=== PATIENT | male | born 2000 | race Caucasian/White ===

== ENCOUNTER 2021-10-18 09:02 | Outpatient (CLI) | payer SELFPAY ==
--- NOTE | 2021-10-18 | ECG_ITS ---
Measurements Intervals [place] Rate: 62 P: 75 AL: 174 QRS: 0 QRSD: 122 T: 55 QT: 386 QTc: 395 Interpretive Statements SINUS RHYTHM WITH SINUS ARRHYTHMIA MODERATE INTRAVENTRICULAR CONDUCTION DELAY [110+ ms QRS DURATION] NO PREVIOUS ECG AVAILABLE FOR COMPARISON Electronically Signed On 10-18-2021 10:22:03 CDT by Marilyn Fox MD
== END 2021-10-18 09:03 | disposition home or self-care (01) ==
PROVIDERS: PCP Family Medicine; Visit Provider Family Medicine
DX: R00.2 Palpitations (principal); I49.9 Cardiac arrhythmia, unspecified; I45.9 Conduction disorder, unspecified
CPT/HCPCS: 93005

== ENCOUNTER 2023-12-05 10:18 | Outpatient (CLI) | payer OTHER, SELFPAY ==
--- NOTE | ~2023-12-05 | XR_ITS ---
EXAMINATION: XR UGIAC wo kub DATE: 12/05/2023 10:53 INDICATION: Gastroesophageal reflux disease without esophagitis TECHNIQUE: The patient drank thick barium, gas-producing crystals, and thin barium. A total of 516 fl uoroscopic images of the esophagus, stomach, and proximal small bowel were obtained. Fluoroscopy expo sure time was 1.4 minutes. Total DAP was 7.293 mGycm^2 COMPARISON: None. FINDINGS: The esophagus is normal without mass or stricture. Esophageal motility is normal. There is no hiatal hernia. There were 2 episodes of gastroesophageal reflux with provocative maneuvers. The st omach and proximal small bowel are normal. IMPRESSION: 1. Couple episodes of gastroesophageal reflux with provocative maneuvers. Otherwise normal upper GI s tudy with no hiatal hernia. Reviewed, dictated and finalized at location B. IMPRESSION: 1. Couple episodes of gastroesophageal reflux with provocative maneuvers. Other nelson normal upper GI study with no hiatal hernia.
== END 2023-12-05 10:19 | disposition home or self-care (01) ==
PROVIDERS: PCP Emergency Medicine; Visit Provider Emergency Medicine
DX: K21.9 Gastro-esophageal reflux disease without esophagitis (principal)
CPT/HCPCS: 74246

== ENCOUNTER 2023-12-13 10:17 | Outpatient (CLI) | payer OTHER, SELFPAY ==
--- NOTE | ~2023-12-13 | US_ITS ---
US abdomen complete EXAMINATION: US Abdomen Complete INDICATION: Abdomen pain PROCEDURE: Realtime High Resolution abdomen ultrasound. COMPARISON: No prior studies for comparison FINDINGS: Gallbladder within normal limits. No gallstones, pericholecystic fluid, gallbladder wall t hickening or biliary dilatation. Common bile duct measures 3 mm. Liver echotexture within normal limits without focal mass. Pancreas within normal limits. Pancreati c tail is obscured by bowel gas. Spleen is unremarkeable. Renal echotexture is within normal limits bilaterally without hydronephrosis, contour deforming mass or renal stone. Right kidney measures 10.1 cm. Left kidney measures 11.3 cm. Visualized aspects of the aorta and IVC are within normal limits. Portal vein is patent. No sonograph ic Lopez's sign indicated by the technologist. IMPRESSION: 1: Normal abdominal ultrasound. Reviewed, dictated and finalized at location B.
== END 2023-12-13 10:18 | disposition home or self-care (01) ==
LOC: MICIMG 10:18
PROVIDERS: PCP Emergency Medicine; Visit Provider Emergency Medicine
DX: K21.9 Gastro-esophageal reflux disease without esophagitis (principal)
CPT/HCPCS: 76700

== ENCOUNTER 2024-02-14 11:14 | Emergency (ER) | payer OTHER, SELFPAY ==
[2024-02-14 11:26] VITALS: BP 152/86; PULSE 70; RESP 16; TEMP 36.8; O2SAT 99
[2024-02-14 12:07] LABS: EDUAAPPEAR Clear; EDUABILI Negative (Negative); EDUABLOOD Negative (Negative); EDUACOLOR1 Yellow; EDUAGLUCOSE Negative (Negative); EDUAKETONE Negative (Negative); EDUALEUKO Negative (Negative); EDUANITRATE Negative (Negative); EDUAPH 6.5; EDUAPROTEIN Negative (Negative); EDUAUROBILI 0.2
--- NOTE | 2024-02-14 12:09 | ED.MALEGU ---
HPI - Male Genitourinary General Chief complaint: Urogenital-Male Stated complaint: urinary issue Time Seen by Provider: 02/14/24 12:13 Source: patient, RN notes reviewed and old records reviewed Mode of arrival: ambulatory Limitations: no limitations History of Present Illness HPI Narrative: Patient presents with complaints of burning with urination and pain following ejaculation. He reports that he has had a burning sensation with ejaculation since becoming sexually active, but the burning sensation with typically subside fairly quickly. He reports that since the last time he ejaculated he has continued to have the burning sensation, especially with urinating. He denies any injury or trauma. He denies fever, chills, sweats. He does report that he uses condoms and spermicide. He voices no other concerns or complaints Related Data Home Medications Medication Instructions Recorded Confirmed No Home Medications 05/23/23 05/23/23 Allergies Allergy/AdvReac Type Severity Reaction Status Date / Time keflex AdvReac unknown Uncoded 02/14/24 11:20 Review of Systems Review of Systems: All systems reviewed & are unremarkable except as noted in HPI and below Constitutional: Constitutional: Reports no additional constitutional complaints ENT: Reports system reviewed and no additional complaints, except as documented Cardiovascular: Cardiovascular: Reports no additional cardiovascular complaints Respiratory: Respiratory: Reports no additional respiratory complaints Gastrointestinal: Gastrointestinal: Reports no additional gastrointestinal complaints Genitourinary: Genitourinary: Reports no additional male genitourinary complaints and Reports as per HPI [facility] Family History Family History Mother Diabetes mellitus Grandparent Breast cancer Carcinoma of colon Social History Social History Social History: Patient states he vaped for four year's. Smoking status: Never smoker Tobacco type: e-cigarettes/vaping Smoking end date: 07/15/21 Comments At the time of my signature, I reviewed and agree with the nursing past medical, surgical, social, and family history. There is no relevant family history pertinent to the patient complaint. Exam Const: General: cooperative, no acute distress, alert and awake Orientation/consciousness: oriented to person, oriented to place and oriented to time HENMT: Head: normal to inspection Resp: Effort & Inspection: normal respiratory effort and able to speak in complete sentences Auscultation: clear to auscultation bilaterally, no crackles, no rales, no rhonchi and no wheezes Cardio: Palpation: normal PMI Rate: regular rate Rhythm: regular rhythm Heart sounds: S1 normal heart sound present and S2 normal heart sound present : Male General Exam: Yes normal external exam Neuro: General: oriented to person, oriented to place and oriented to time Cranial nerves: Yes CN's II-XII intact bilaterally Psych: Appearance: grossly normal Thought process: Normal thought process present Insight: Good insight present (Psych) Judgement: Good judgement present (Psych) Course Course Level of Care: Express Care Visit Vital Signs Vital signs: Vital Signs Temperature 98.2 F 02/14/24 11:26 Pulse Rate 70 02/14/24 11:26 Respiratory Rate 16 02/14/24 11:26 Blood Pressure 152/86 H 02/14/24 11:26 Pulse Oximetry 99 02/14/24 11:26 Oxygen Delivery Room Air 02/14/24 11:26 Temperature 98.2 F 02/14/24 11:26 Pulse Rate 70 02/14/24 11:26 Respiratory Rate 16 02/14/24 11:26 Blood Pressure 152/86 H 02/14/24 11:26 Pulse Oximetry 99 02/14/24 11:26 Oxygen Delivery Room Air 02/14/24 11:26 Reviewed MDM - Male Genitourinary MDM Narrative Medical decision making narrative: Negative UA. Reassuring physical exam. STD panel pending. Suggest that patient changed brands of condom, perhaps there is some degree of sensitivity. Elevated blood pressure noted. Patient strongly encouraged to follow with primary care provider Discharge instructions reviewed with patient, as well as provided in writing per nursing staff. The instructions also include specific and strict return/GO TO THE ER as well as f/u information. All questions have been answered, and the patient deny any further questions with discharge and discharge plan. Some parts of this dictation were generated by voice recognition software and may contain typographical and/or grammatical inaccuracies. Differential Diagnosis Differential diagnosis: Likely urinary tract infection, urethritis, epididymitis, prostatitis and other (sti) Medical Records Attestation: I reviewed the patient's medical records. Lab Data Attestation: I reviewed the patient's lab results. Labs: Lab Results 11/30/24 Range/Units 11:40 POC Urine Color Yellow POC Urine Clarity Clear POC Urine pH 6.5 POC Ur Specif [place] 1.020 POC Urine Protein Negative (Negative) POC Ur Glucose (UA) Negative (Negative) POC Urine Ketones Negative (Negative) POC Urine Blood Negative (Negative) POC Urine Nitrite Negative (Negative) POC Urine Bilirubin Negative (Negative) POC Urine Urobilinogen 0.2 POC U Leukocyte Esteras Negative (Negative) Discharge Plan Discharge Clinical Impression: Dysuria, Elevated blood pressure reading Patient Disposition: Home, Self-Care Condition: Stable Instructions: Antibiotic Form, Dysuria (ED) Additional Instructions: Drink plenty of water, at least 64 oz daily. Follow-up with primary care provider. Emergency department for new or worse symptoms Patient Language: Maltese Prescriptions: No Action No Home Medications Follow-up/Referrals: Raul Bland MD [Primary Care Provider] - 1 Week Time of Disposition: 12:24
[2024-02-14 18:41] LABS: Trichomonas Vag PCR NOT DETECTED (NOT DETECTE)
[2024-02-14 19:11] LABS: Chlamydia trachomatis NOT DETECTED (NOT DETECTE); Neisseria gonorrhoeae PCR NOT DETECTED (NOT DETECTE)
== END 2024-02-14 12:27 | disposition home or self-care (01) ==
PROVIDERS: Emergency Provider Nurse Practitioner Family; PCP Emergency Medicine
DX: R30.0 Dysuria (principal); R03.0 Elevated blood-pressure reading, without diagnosis of hypertension; Z11.3 Encounter for screening for infections with a predominantly sexual mode of transmission; Z87.891 Personal history of nicotine dependence
CPT/HCPCS: 81003; 87491; 87591; 87661; 99213; G0463

== ENCOUNTER 2025-02-21 00:47 | Day surgery (SDC) | payer OTHER, SELFPAY ==
[2025-01-27 14:59] VITALS: BMI 30.2
[2025-02-21 12:29] VITALS: BP 145/75; PULSE 78; RESP 18; TEMP 36.9; O2SAT 100
[2025-02-21] MEDS: LACTATED RINGERS 1,000 ML 150 ML IV CONT (12:37)
[2025-02-21] MEDS: SIMETHICONE ORAL SUSPENSION 20 MG/0.3 ML 30 ML BOTTLE 1.8 ML PO (12:40)
--- NOTE | 2025-02-21 12:59 | WPDANESEPPF ---
Anes - Initial Pre Proc Eval Procedure: Operation Date: 02/21/25 14:00 Proposed Procedures p EGD & Diagnostic Colonoscopy - Howard Chan MD Date/Time: 02/21/25 12:59 Surgeon: Howard Chan MD Pre Op Diagnosis: Fecal urgency Patient Data Age: 24 Gender: M Height: 1.88 m Weight: 106.6 kg Last Vital Signs Temp 36.9 C 02/21/25 12:29 Pulse 78 02/21/25 12:29 Resp 18 02/21/25 12:29 BP 145/75 H 02/21/25 12:29 Pulse Ox 100 02/21/25 12:29 O2 Del Method Room Air 02/21/25 12:29 Allergies Allergy/AdvReac Type Severity Reaction Status Date / Time cephalexin AdvReac Unknown Verified 02/21/25 12:42 Home Medications ?Medication ?Instructions ?Recorded ?Confirmed ?Type fluoxetine 20 mg capsule 40 mg PO DAILY 12/20/24 02/21/25 History omeprazole 40 mg capsule,delayed 40 mg PO DAILY 3 months #90 caps 12/20/24 02/21/25 Rx release Patient hx anesthesia problems: none Family hx anesthesia problems: none Results Review: All pre-operative results and documents have been reviewed as part of the pre-operative evaluation. COUNT INCLUDES THE [facility] Past Medical History Medical History Family history of colon cancer Bilateral lower abdominal cramping Fecal urgency Loose stools Generalized anxiety disorder Gastroesophageal reflux disease Family History Family History Mother Diabetes mellitus Grandparent Breast cancer Carcinoma of colon Social History Social History (Updated 02/21/25 @ 12:59 by Cecilio Sanchez MD) Social History: Patient states he vaped for four year's. Smoking status: Former smoker Tobacco type: e-cigarettes/vaping Smoking end date: 07/15/21 Alcohol intake: current Drinks per week: 5 Substance use: never Substance use type: does not use Living arrangements: with family Spiritual care concerns: No Anes - Eval Final PreProcedure Day of Procedure 02/21/25 12:59 Patient weight: obese Heart: regular rate and rhythm Lungs: clear to auscultation Airway: Mallampati scale class II Neurological: alert and oriented Last oral intake: >/= 8 hours ASA classification: II Emergent: no Anesthetic plan: proceed Anesthesia type and monitoring: general GIVS and standard monitoring Results Review: All pre-operative results and documents have been reviewed as part of the pre-operative evaluation. Informed Consent: The patient's anesthetic plan and its attendant risks and benefits were discussed with the patient/family/POA. Questions were solicited and answers provided to the satisfaction of the patient/family/POA.
--- NOTE | 2025-02-21 13:39 | P.HP_ITS ---
H&P: HPI History of Present Illness Date/Time: 02/21/25 13:39 Chief Complaint: GERD-defecatory urgency Narrative: The patient suffer from GERD for many years, currently partially controlled with omeprazole. In addition he has significant defacatory urgency for some years, no rectal bleeding, no abdominal pain. He is referred for EGD and colonoscopy. Review of Systems Review of Systems: All systems reviewed & are unremarkable except as noted in HPI and below PMFSH Past Medical History Medical History Family history of colon cancer Bilateral lower abdominal cramping Fecal urgency Loose stools Generalized anxiety disorder Gastroesophageal reflux disease Family History Family History Mother Diabetes mellitus Grandparent Breast cancer Carcinoma of colon Social History Social History (Updated 02/21/25 @ 12:59 by Cecilio Sanchez MD) Social History: Patient states he vaped for four year's. Smoking status: Former smoker Tobacco type: e-cigarettes/vaping Smoking end date: 07/15/21 Alcohol intake: current Drinks per week: 5 Substance use: never Substance use type: does not use Living arrangements: with family Spiritual care concerns: No Meds Home Medications and Allergies Home Medications ?Medication ?Instructions ?Recorded ?Confirmed ?Type fluoxetine 20 mg capsule 40 mg PO DAILY 12/20/2411/08 History omeprazole 40 mg capsule,delayed 40 mg PO DAILY 3 babatunde hs #90 caps 12/20/24 02/21/25 Rx release Allergies Allergy/AdvReac Type Severity Reaction Status Date / Time cephalexin AdvReac Unknown Verified 02/21/25 12:42 Vital Signs Vital Signs - 24 hr 02/21/25 12:29 Temperature 98.4 F Pulse Rate 78 Respiratory Rate 18 Blood Pressure 145/75 H Pulse Oximetry 100 Oxygen Delivery Room Air Exam Const: General: cooperative and healthy appearing Resp: Effort & Inspection: normal respiratory effort and able to speak in complete sentences Auscultation: clear to auscultation bilaterally Cardio: Rate: regular rate Rhythm: regular rhythm GI: Inspection: normal to inspection GI Palp: No No hepatosplenomegaly present Auscultation: normal bowel sounds Rectal Exam: deferred Skin: General skin exam: normal color Psych: Appearance: grossly normal Mental Status: mental status grossly normal Assessment and Plan Assessment and plan (1) Gastroesophageal reflux disease: Code(s): K21.9 - Gastro-esophageal reflux disease without esophagitis Status: Acute Assessment and Plan: The patient is deemed a good candidate for the procedures. Consent signed. Will proceed. (2) Fecal urgency: Code(s): R15.2 - Fecal urgency Status: Acute
[2025-02-21] MEDS: SIMETHICONE ORAL SUSPENSION 20 MG/0.3 ML 30 ML BOTTLE 0.6 ML IRRIGATION (14:04)
--- NOTE | 2025-02-21 14:12 | SUR.OPER ---
EGD START 1350, END 1355 COLONOSCOPY START 1400, END 1412
--- NOTE | 2025-02-21 14:13 | S_PTH ---
PATIENT: Paul Mcdermott LOC: RE U#:[id number] AGE/SX: 24/M ROOM: RE02/21/[address]: Howard Chan MD : [id number] BED: DIS: 02/21/2025 SPEC #: [id number] RECD: 02/21/25 14:30 STATUS: MILTON REYNOSO #: [id number] CONSTANCE: 02/21/25 14:[address]: Howard Chan DEPT: [facility] Surgical RECD BY: Brenda Canas Tissues: A - Gastric Biopsy B - Gastric Biopsy Procedures: Hematoxylin and Eosin Stain Gross and Microscopic Level 4
[2025-02-21 14:14] VITALS: BP 93/66; PULSE 65; RESP 18; O2SAT 97
[2025-02-21 14:24] VITALS: BP 98/62; PULSE 62; RESP 18; O2SAT 96
[2025-02-21 14:33] VITALS: BP 118/68; PULSE 63; RESP 18; O2SAT 100
== END 2025-02-21 14:51 | disposition home or self-care (01) ==
PROVIDERS: Referring Provider Nurse Practitioner Family; Visit Provider Internal Medicine Gastroenterology
PROC: 0DJ08ZZ Inspection of Upper Intestinal Tract, Via Natural or Artificial Opening Endoscopic (ICD-10-PCS; CPT 45378; principal; 2025-02-21 14:00)
DX: K21.9 Gastro-esophageal reflux disease without esophagitis (principal); K29.50 Unspecified chronic gastritis without bleeding; R15.2 Fecal urgency; F41.9 Anxiety disorder, unspecified; E66.9 Obesity, unspecified; Z68.30 Body mass index [BMI] 30.0-30.9, adult; Z87.891 Personal history of nicotine dependence; Z80.3 Family history of malignant neoplasm of breast; Z80.0 Family history of malignant neoplasm of digestive organs
CPT/HCPCS: 43239; 45378; 88305; J2003; J2704; J7120